=== PATIENT | female | born 1965 | race Caucasian/White ===

== ENCOUNTER 2023-08-14 06:01 | Day surgery (SDC) | payer BC, SELFPAY ==
[2023-08-14] VITALS (20 sets, daily range): BP systolic 81–143; BP diastolic 54–109; PULSE 59–82; RESP 12–16; TEMP 35.8–36.2; O2SAT 94–100; BMI 39.8
[2023-08-14] MEDS: LACTATED RINGERS 1000 ML 1,000 ML 100 ML IV ×3 (06:50→09:55)
[2023-08-14] MEDS: CELECOXIB 200 MG CAPSULE PO (06:50)
[2023-08-14] MEDS: SODIUM CHLORIDE 0.9 % (FLUSH) 10 ML SYRINGE IVF (06:50)
[2023-08-14] MEDS: ACETAMINOPHEN 500 MG TABLET 1000 MG PO (06:50)
[2023-08-14] MEDS: OXYCODONE (CR) 10 MG TAB.ER.12H PO (06:50)
--- NOTE | 2023-08-14 07:14 | SUR.PREOP ---
TIME?OUT:?0714 PT/RN/MDA?VERIFICATION?OF?SURGICAL?SITE-RIGHT KNEE,?PROCEDURE,?NERVE BLOCK AND?CONSENT OBTAINED?PRIOR?TO?INVASIVE?PROCEDURE.
[2023-08-14] MEDS: MIDAZOLAM HCL 1 MG/ML inj IVP (07:15)
[2023-08-14] MEDS: fentaNYL 100 MCG/2 ML inj IVP (07:15)
[2023-08-14] MEDS: TRANEXAMIC ACID 100 MG/ML INJ 1000 MG IV (07:48)
[2023-08-14] MEDS: CEFAZOLIN 2 GM INJ IVP (07:48)
--- NOTE | 2023-08-14 08:59 | CRLHL7_ITS ---
For Patients: As a result of the Century Cures Act, medical imaging exams and procedure reports are released immediately into your electronic medical record. You may view this report before your referring provider. If you have questions, please contact your health care provider. INDICATION: Postop TKA. TECHNIQUE: Two views of the right knee. FINDINGS: There is a right TKA. Components appear well seated. Adjacent postop soft tissue air. Dictated by Rusty Arambula MD @ 08/15/2023 8:37:47 AM (Electronically Signed)
--- NOTE | 2023-08-14 09:00 | PM.ORPRC ---
Procedure Note Date of procedure: 08/14/23 Procedure: PREOPERATIVE DIAGNOSIS: Right knee osteoarthritis POSTOPERATIVE DIAGNOSIS: Right knee osteoarthritis NAME OF OPERATION: Right total knee arthroplasty SURGEON: Woody Valerio MD AUDIOVISUAL EQUIPMENT OPERATOR: SAMANTHA Montalvo ANESTHESIA: Spinal ESTIMATED BLOOD LOSS: 0 mL COMPLICATIONS: None SPECIMENS: None DRAINS: None PREOPERATIVE ANTIBIOTICS: Ancef 2 grams, antibiotic impregnated cement IMPLANTS: 1. J&J Attune # 5 posterior stabilized femur 2. #4 revision CRS fixed-bearing tibia, with a 14 mm x 50 mm cemented stem 3. # 5 posterior stabilized, 5 mm fixed-bearing polyethylene 4. 38 patella INDICATIONS: The patient is a 58-year-old with a longstanding history of severe, unrelenting right knee pain secondary to end-stage (grade IV) right knee osteoarthritis. Despite appropriate nonoperative management, including activity modification, anti-inflammatories, [id number] pain medication, bracing, physical therapy, and injections they continue to have pain and disability. Operative intervention was offered. The risks, benefits and expected outcomes were discussed in detail. These included but were not limited to: Infection, bleeding, injury to blood vessel or nerve, venous thromboembolism. All questions were answered to their satisfaction. Use of an engineer second assistant was necessary throughout the case for patient positioning and safety, soft tissue retraction, and closure. PROCEDURE: Spinal anesthesia was administered. The patient was placed supine on the operating table. The engineer second assistant made sure the patient was positioned appropriately. The lower extremity was prepped and draped in the usual sterile fashion. The limb was exsanguinated with the Arvin bandage. The pneumatic tourniquet was inflated to 300 mmHg. A standard anterior incision was made with the knee in flexion. Subcutaneous dissection was sharply taken through fascial layer #1. Full-thickness medial and lateral flaps were elevated. The engineer second assistant retracted the soft tissues and protected them throughout the case. A standard subvastus approach was made. The patella was everted. The infrapatellar fat pad was preserved. The menisci and cruciate ligaments were sharply d?brided. Marginal osteophytes were d?brided with the rongeur. The drill was used to penetrate the femoral canal. The canal was aspirated and irrigated with pulse lavage. The intramedullary femoral guide was placed for a 5-degree valgus cut, removing 10 mm off the distal femur. The saw was used to make the cut. Whitesides line and the trans epicondylar axis were marked. The femoral sizing guide was pinned onto the distal femur. Three degrees of external rotation nicely parallels the transepicondylar axis. Pins were placed for posterior referencing. The four-in-one cutting guide was pinned onto the distal femur. The anterior, posterior, and chamfer cuts were made. The engineer second assistant protected the collateral ligaments. The box cutting guide was pinned. The box cuts were made. The boxed trial was placed and was an excellent fit. Drill holes for the lugs were made. Attention was then turned to the proximal tibia. The extramedullary tibial guide was placed for a neutral varus/valgus cut with 5 degrees of posterior slope, removing 2 mm based off the medial tibial surface. The engineer second assistant protected the collateral ligaments and the neurovascular bundle. The saw was used to make the cut. Trial components were placed. The knee was nicely balanced in both flexion and extension. The trial components were removed. The tray was placed in appropriate rotation, parallel to our tibial cutting pins. It was pinned by the engineer second assistant and the drill and the punch were used. The tray was removed. The punch was used again. We placed a bone plug in the femoral canal. Attention was then turned to the patella. [place] patellar thickness was 22 mm. The lobster claw resection guide was used with the 9.5 mm ji. The saw was used to make the cut. Drill holes were made by the engineer second assistant. The trial was placed and was an excellent fit. Cancellous surfaces were irrigated with pulse lavage and thoroughly dried by the engineer second assistant. We cemented the tibial component, then the femoral component. We impacted the 5 mm polyethylene onto the tibial tray. The knee was brought into full extension. We then cemented the patellar component. Excessive cement was removed. The cement was allowed to harden. The knee was taken through a range of motion and was found to be nicely balanced in both flexion and extension. The patella tracks centrally. The engineer second assistant did a three minute dilute Betadine solution soak. The engineer second assistant irrigated the wound with 3 liters of normal saline via pulse lavage. The engineer second assistant reapproximated the extensor mechanism with #1 Vicryl in an interrupted [id number] fashion. The engineer second assistant then ran the extensor mechanism with a #1 PDO Stratafix. The engineer second assistant closed the subcutaneous tissues with a 3-0 Stratafix and the skin with a running 3-0 Stratafix in a subcuticular fashion. Glue was used to seal the skin. The engineer second assistant placed a dry dressing. Sponge and needle counts were correct x2. The patient tolerated the procedure well. There were no apparent complications. They were carefully transferred to the hospital bed and taken to the postanesthesia care unit in satisfactory condition. PLAN: The patient will be mobilized with physical therapy. Aspirin will be used for DVT prophylaxis. They will be discharged to home once medically appropriate.
--- NOTE | 2023-08-14 09:30 | W.ANESCHARGE ---
Anesthesia Charges Start Date/Time Anesthesia Start Date: 08/14/23 Anesthesia Start Time: 07:29 Stop Date/Time Anesthesia Stop Date: 08/14/23 Anesthesia Stop Time: 09:32
[2023-08-14] MEDS: LACTATED RINGERS 1000 ML 1,000 ML 75 ML IV (10:00)
--- NOTE | 2023-08-14 10:49 | W.ANESCHARGE ---
Anesthesia Charges Start Date/Time Anesthesia Start Date: 08/14/23 Anesthesia Start Time: 07:29 Stop Date/Time Anesthesia Stop Date: 08/14/23 Anesthesia Stop Time: 09:32
--- NOTE | 2023-08-14 10:50 | P.NB_ITS ---
Nerve Block Nerve Block Time Seen by Provider: 07:17 Date Seen: 08/14/23 Type of block requested by surgeon for post-operative analgesia: geniculars Side: right Time out performed: Yes Verification of patient name: Yes Verification of date of : Yes Site marking: site marked Name of person performing procedure: Henry Continuous monitoring Was continuous monitoring of O2 sat, B/P, electronic device monitor, recorded every 15 minutes?: Yes Procedure Checklist: sterile prep, needles and gloves Medications given in 5ml increments after negative aspiration: Ropivicaine %: 0.5 mL: 9 Needle gauge: 25 Patient tolerated procedure well: Yes Block Charges Block Charge (with Pro Fee): Genicular Nerve Block Use of Ultrasound Machine for Block: No
--- NOTE | 2023-08-14 10:50 | W.PM.NB ---
Nerve Block Nerve Block Time Seen by Provider: 07:17 Date Seen: 08/14/23 Type of block requested by surgeon for post-operative analgesia: adductor canal Side: right Time out performed: Yes Verification of patient name: Yes Verification of date of : Yes Site marking: site marked Name of person performing procedure: Henry Continuous monitoring Was continuous monitoring of O2 sat, B/P, awake overnight monitor, recorded every 15 minutes?: Yes Procedure Checklist: sterile prep, needles and gloves Ultrasound guided. Images saved: Yes Medications given in 5ml increments after negative aspiration: Ropivicaine %: 0.5 mL: 20 Needle gauge: 20 Decadron (mg): 10 Precedex (mcg): 25 Patient tolerated procedure well: Yes Additional comments: Needle noted adjacent to nerve Block Charges Block Charge (with Pro Fee): Femoral Nerve Use of Ultrasound Machine for Block: Yes- US Guidance/pain block
--- NOTE | 2023-08-14 11:02 | SUR.PHASEII ---
SAME DAY SURGERY LOCAL INJECTION SITE VERIFICATION WAS PERFORMED BY SURGEON/PA AND PATIENT PRIOR TO LOCAL ANESTHETIC BEING INJECTED TO OPERATIVE SITE.
[2023-08-14] MEDS: OXYCODONE 5 MG TABLET PO ×2 (12:41→14:00)
== END 2023-08-14 14:15 | disposition home or self-care (01) ==
LOC: OR 06:02
PROVIDERS: Visit Provider Orthopaedic Surgery
PROC: (CPT 27447; principal; 2023-08-14 07:30)
DX: M17.11 Unilateral primary osteoarthritis, right knee (principal); G89.18 Other acute postprocedural pain
CPT/HCPCS: 27447; 01402; 64447; 64454; 73560; 76942; 97110; 97116; 97161; A9270; C1776; J0690; J1100; J2250; J2405; J2704; J2795; J3010; J7120